=== PATIENT | male | born 1965 | race Caucasian/White ===

== ENCOUNTER 2018-06-20 16:25 | Inpatient (IN) ==
[2018-06-20] MEDS ORDERED: Sod Chloride 0.9% Inj 1,000 ML IV.SIG ONE (17:01)
[2018-06-20 17:27] LABS: Hematocrit 40.4 % (39.0-51.0); Hemoglobin 13.6 gm/dL (13.0-17.0); Mean Corpuscular HGB Conc 33.7 % (32.0-36.0); Mean Corpuscular Hemoglobin 31.4 pg (27.0-34.0); Mean Corpuscular Volume 93.1 fL (80.0-100.0); Mean Platelet Volume 10.4 fL (7.0-11.0); Platelet Count 140 th/mm3 (150-450); Red Blood Count 4.34 mil/mm3 (4.50-5.90); White Blood Count 4.9 th/mm3 (4.0-11.0)
[2018-06-20 17:38] LABS: Activated Partial Thrombo Time 31.2 sec (24.3-30.1); INR 1.2 Ratio; Prothrombin Time 12.4 sec (9.8-11.6)
[2018-06-20 17:41] LABS: Anion Gap 6 meq/L (5-15); Aspartate Aminotransferase 994 U/L (15-37); Blood Urea Nitrogen 12 mg/dL (7-18); Calcium 8.1 mg/dL (8.5-10.1); Carbon Dioxide 30.5 meq/L (21.0-32.0); Chloride 105 meq/L (98-107); Glucose,Random 108 mg/dL (74-106); Lipase 691 U/L (73-393); Potassium 3.9 meq/L (3.5-5.1); Sodium 141 meq/L (136-145)
[2018-06-20 17:49] LABS: Alanine Aminotransferase 2031 U/L (12-78); Alkaline Phosphatase 138 U/L (45-117); Creatine Kinase 208 U/L (39-308)
[2018-06-20 18:04] LABS: Creatine Kinase MB 4.5 ng/mL (0.5-3.6)
[2018-06-20 18:08] LABS: Eosinophils 8 % (0-4); Lymphocytes 31 % (9-44); Monocytes 7 % (0-8); Platelet Morphology Normal (Normal); RBC Morphology Normal (Normal)
--- NOTE | 2018-06-20 19:33 | CT ---
EXAM DATE: 06/20/2018 6:36 PM EDT AGE/SEX: 53 years / Male INDICATIONS: Diarrhea, gaviria stools, yellowing of eyes, abdominal distention, dark urine. CLINICAL DATA: This is the patient's initial encounter. Patient reports that signs and symptoms have been present for 2 weeks and indicates a pain score of 4/10. MEDICAL/SURGICAL HISTORY: . Bilateral inguinal hernias. Cholecystectomy. Inguinal hernia rep air. RADIATION DOSE: 15.39 CTDI (mGy) COMPARISON: No prior exams available for comparison. TECHNIQUE: Multiple contiguous axial images were obtained through the abdomen. Images were obtained using multiple row detector helical technique. Using automated exposure control and adjustment of the mA and/or kV according to patient size, radiation dose was kept as low as reasonably achievable to o btain optimal diagnostic quality images. DICOM format image data is available electronically for rev iew and comparison. FINDINGS: Lower Lungs: The visualized lower lungs are clear. Liver: The liver has a homogeneous density without space-occupying lesion. There is no dilation of th e biliary tree. Post cholecystectomy clips are noted. Spleen: Spleen is enlarged. Pancreas: Unremarkable without mass or calcification. Kidneys: Normal in size and shape. No evidence of mass or hydronephrosis. Adrenal Glands: Unremarkable. Aorta: The aorta and proximal iliac vessels are grossly unremarkable without aneurysmal dilation. Bowel/Mesentery: The bowel loops are grossly unremarkable. The cecum and sigmoid colon have a normal configuration. Abdominal Wall: Intact. Retroperitoneum: No evidence of adenopathy in the retrocrural, para-aortic, or deep pelvic regions. Bladder: Contours are smooth. Reproductive Organs: No abnormal masses or calcifications seen. Inguinal: The inguinal region is unremarkable without evidence of adenopathy. Bony Structures: Mild to moderate lumbar facet arthropathy CONCLUSION: 1. Splenomegaly 2. Status post cholecystectomy. 3. No evidence of biliary obstructive disease. 4. Otherwise unremarkable exam. Electronically signed by: Den Galdamez MD 06/20/2018 7:32 PM EDT
--- NOTE | 2018-06-20 19:57 | ED ---
HPI General Chief Complaint: Abdominal Pain Stated Complaint: stomach pains/gu Time Seen by Provider: 06/20/18 16:47 Source: patient Mode of arrival: ambulatory Limitations: no limitations History of Present Illness HPI narrative: 53-year-old male with a history of ADHD, anxiety, insomnia, depression, chronic low back pain presents to the emergency department for evaluation of abdominal bloating, diarrhea, and "tea colored urine" for approximately 3 weeks. Patient states that he started developing symptoms in combination with yellowing of his eyes, increased fatigue and bright and light colored stools. Says he has had 5-6 episodes of diarrhea daily for the last week and a half. Patient denies abdominal pain but says he has "pressure" throughout his abdomen. He denies nausea or vomiting. Denies fevers or chills. Denies current alcohol use but states he used to drink 5-6 beers occasionally. Patient says he smokes one half pack per day of tobacco. Denies illicit drug use. MD complaint: other Onset (ago): week(s) Location: diffuse Severity: mild Quality: other (pressure) Radiation: none Migration to: no migration Relieving factors: nothing Exacerbating factors: nothing Associated symptoms: denies other symptoms Related Data Home Medications Medication Instructions Recorded Confirmed citalopram mg PO PRN 06/20/18 citalopram [Celexa] mg PO DAILY 06/20/18 dextroamphetamine-amphetamine mg PO DAILY 06/20/18 [Adderall] trazodone mg PO DAILY 06/20/18 Allergies Allergy/AdvReac Type Severity Reaction Status Date / Time No Known Allergies Allergy Severe Uncoded 12/14/06 00:11 Review of Systems ROS: all other systems reviewed are negative [facility] Medical History Medical History Anxiety (Acute) Hernia (Acute) Insomnia (Acute) Surgical History Surgical History Hx of cholecystectomy (Acute) Social History Social History Substance History: No History of Abuse Second Hand Smoke Exposure: No Smoking Status: Former smoker Tobacco Type: Cigarettes How Often Do You Have a Drink Containing Alcohol: Never Recent Travel in [facility] within the Last 8 Weeks: No Recent Out of Country Travel within the Last 8 Weeks: No Exam Narrative Exam Narrative: GENERAL: WD, WN in NAD SKIN: Focused skin assessment warm/dry. HEAD: Atraumatic. Normocephalic. EYES: Pupils equal and round. Scleral icterus. No injection or drainage. ENT: No nasal bleeding or discharge. Mucous membranes pink and moist. NECK: Trachea midline. No JVD. CARDIOVASCULAR: Regular rate and rhythm. No murmur appreciated. RESPIRATORY: No accessory muscle use. Clear to auscultation. Breath sounds equal bilaterally. GASTROINTESTINAL: Abdomen soft, protuberant, slightly distended. No rashes or lesions. No caput medusa. MUSCULOSKELETAL: No obvious deformities. No clubbing. No cyanosis. No edema. NEUROLOGICAL: Awake and alert. No obvious cranial nerve deficits. Motor grossly within normal limits. Normal speech. PSYCHIATRIC: Appropriate mood and affect; insight and judgment normal. Course Initial Documented Vital Signs Temperature 97.4 F L 06/20/18 16:30 Pulse Rate 78 06/20/18 16:30 Respiratory Rate 20 06/20/18 16:30 Blood Pressure 160/80 H 06/20/18 16:30 Pulse Oximetry 95 06/20/18 16:30 Last Documented Vital Signs Temperature 97.1 F L 06/20/18 22:46 Pulse Rate 65 06/20/18 22:46 Respiratory Rate 18 06/20/18 22:46 Blood Pressure 164/99 H 06/20/18 22:46 Pulse Oximetry 97 06/20/18 22:46 Medical Decision Making MDM Narrative Medical decision making narrative: 53-year-old male presents to the emergency department for evaluation of 5-6 episodes of light colored diarrhea, abdominal bloating, yellowing of his eyes last 3 weeks. Denies excessive use of Tylenol, h/o illicit drug use. Denies Alcohol consumption in 10 years. Denies blood transfusion. Labs are concerning for mild thrombocytopenia, elevated coags, lipase 691, AST/ ALT 994/2031, ammonia 28, bilirubin 6.1. CT noncontributory. Of note, he states that his son was recently diagnosed with Hepatitis C. I spoke with Dr. Farley who accepted this admission. Medical Screen Exam Complete: Yes Emergency Medical Condition: Yes Differential Diagnosis Differential Diagnosis: Hepatitis, pancreatitis, gallstone pancreatitis, gastritis Lab Data Result diagrams: 06/20/18 17:08 06/20/18 17:08 Lab Results 06/20/18 06/20/18 06/20/18 Range/Units 17:05 17:08 17:08 WBC 4.9 (4.0-11.0) th/mm3 RBC 4.34 L (4.50-5.90) mil/mm3 Hgb 13.6 (13.0-17.0) gm/dL Hct 40.4 (39.0-51.0) % MCV 93.1 (80.0-100.0) fL MCH 31.4 (27.0-34.0) pg MCHC 33.7 (32.0-36.0) % RDW 18.0 H (11.6-17.2) % Plt Count 140 L (150-450) th/mm3 MPV 10.4 (7.0-11.0) fL Prelim Diff (Auto) Slide review pending WBC Differential Manual diff final Seg Neuts % (Manual) 52 (16-70) % Band Neuts % (Manual) 1 (0-6) % Lymphocytes % (Manual) 31 (9-44) % Monocytes % (Manual) 7 (0-8) % Eosinophils % (Manual) 8 H (0-4) % Basophils % (Manual) 1 (0-2) % Abs Neuts (Manual) 2.6 (1.8-7.7) th/mm3 Differential Comment . Platelet Estimate Low L (Normal) Platelet Morphology Normal (Normal) RBC Morphology Normal (Normal) PT 12.4 H (9.8-11.6) sec INR 1.2 Ratio APTT 31.2 H (24.3-30.1) sec Sodium (136-145) meq/L Potassium (3.5-5.1) meq/L Chloride (98-107) meq/L Carbon Dioxide (21.0-32.0) meq/L Anion Gap (5-15) meq/L BUN (7-18) mg/dL Creatinine (0.60-1.30) mg/dL Random Glucose (74-106) mg/dL Calcium (8.5-10.1) mg/dL Total Bilirubin (0.2-1.0) mg/dL AST (15-37) U/L ALT (12-78) U/L Alkaline Phosphatase (45-117) U/L Ammonia 28 (11-32) mcmol/L Total Creatine Kinase (39-308) U/L CK-MB (CK-2) (0.5-3.6) ng/mL Total Protein (6.4-8.2) g/dL Albumin (3.4-5.0) g/dL Lipase (73-393) U/L Urine Color (Yellw/Straw) Urine Clarity (Clear) Urine pH (5.0-8.5) Ur Specific [place] (1.002-1.035) Urine Protein (Neg-Trace) mg/dL Urine Glucose (UA) (Negative) mg/dL Urine Ketones (Negative) mg/dL Urine Occult Blood (Negative) Urine Nitrate (Negative) Urine Bilirubin (Negative) Urine Ictotest (Negative) Urine Urobilinogen (Less than 2) mg/dL Ur Leukocyte Esterase (Negative) Urine RBC (0-3) /hpf Urine WBC (0-5) /hpf Ur Squamous Epith Cells (0-5) /hpf Hyaline Casts (0-3) /lpf Micro UA Comment Ur Microscopic Review Urine Culture Comments Acetaminophen (10.0-30.0) mcg/mL 06/20/18 06/20/18 06/20/18 Range/Units 17:08 17:08 17:08 WBC (4.0-11.0) th/mm3 RBC (4.50-5.90) mil/mm3 Hgb (13.0-17.0) gm/dL Hct (39.0-51.0) % MCV (80.0-100.0) fL MCH (27.0-34.0) pg MCHC (32.0-36.0) % RDW (11.6-17.2) % Plt Count (150-450) th/mm3 MPV (7.0-11.0) fL Prelim Diff (Auto) WBC Differential Seg Neuts % (Manual) (16-70) % Band Neuts % (Manual) (0-6) % Lymphocytes % (Manual) (9-44) % Monocytes % (Manual) (0-8) % Eosinophils % (Manual) (0-4) % Basophils % (Manual) (0-2) % Abs Neuts (Manual) (1.8-7.7) th/mm3 Differential Comment Platelet Estimate (Normal) Platelet Morphology (Normal) RBC Morphology (Normal) PT (9.8-11.6) sec INR Ratio APTT (24.3-30.1) sec Sodium 141 (136-145) meq/L Potassium 3.9 (3.5-5.1) meq/L Chloride 105 (98-107) meq/L Carbon Dioxide 30.5 (21.0-32.0) meq/L Anion Gap 6 (5-15) meq/L BUN 12 (7-18) mg/dL Creatinine 0.84 (0.60-1.30) mg/dL Random Glucose 108 H (74-106) mg/dL Calcium 8.1 L (8.5-10.1) mg/dL Total Bilirubin 6.1 H (0.2-1.0) mg/dL AST 994 H (15-37) U/L ALT 2031 H (12-78) U/L Alkaline Phosphatase 138 H (45-117) U/L Ammonia (11-32) mcmol/L Total Creatine Kinase 208 Cancelled (39-308) U/L CK-MB (CK-2) 4.5 H (0.5-3.6) ng/mL Total Protein 7.0 (6.4-8.2) g/dL Albumin 3.0 L (3.4-5.0) g/dL Lipase 691 H (73-393) U/L Urine Color (Yellw/Straw) Urine Clarity (Clear) Urine pH (5.0-8.5) Ur Specific [place] (1.002-1.035) Urine Protein (Neg-Trace) mg/dL Urine Glucose (UA) (Negative) mg/dL Urine Ketones (Negative) mg/dL Urine Occult Blood (Negative) Urine Nitrate (Negative) Urine Bilirubin (Negative) Urine Ictotest (Negative) Urine Urobilinogen (Less than 2) mg/dL Ur Leukocyte Esterase (Negative) Urine RBC (0-3) /hpf Urine WBC (0-5) /hpf Ur Squamous Epith Cells (0-5) /hpf Hyaline Casts (0-3) /lpf Micro UA Comment Ur Microscopic Review Urine Culture Comments Acetaminophen Less than 2.0 L (10.0-30.0) mcg/mL 06/20/18 Range/Units 21:32 WBC (4.0-11.0) th/mm3 RBC (4.50-5.90) mil/mm3 Hgb (13.0-17.0) gm/dL Hct (39.0-51.0) % MCV (80.0-100.0) fL MCH (27.0-34.0) pg MCHC (32.0-36.0) % RDW (11.6-17.2) % Plt Count (150-450) th/mm3 MPV (7.0-11.0) fL Prelim Diff (Auto) WBC Differential Seg Neuts % (Manual) (16-70) % Band Neuts % (Manual) (0-6) % Lymphocytes % (Manual) (9-44) % Monocytes % (Manual) (0-8) % Eosinophils % (Manual) (0-4) % Basophils % (Manual) (0-2) % Abs Neuts (Manual) (1.8-7.7) th/mm3 Differential Comment Platelet Estimate (Normal) Platelet Morphology (Normal) RBC Morphology (Normal) PT (9.8-11.6) sec INR Ratio APTT (24.3-30.1) sec Sodium (136-145) meq/L Potassium (3.5-5.1) meq/L Chloride (98-107) meq/L Carbon Dioxide (21.0-32.0) meq/L Anion Gap (5-15) meq/L BUN (7-18) mg/dL Creatinine (0.60-1.30) mg/dL Random Glucose (74-106) mg/dL Calcium (8.5-10.1) mg/dL Total Bilirubin (0.2-1.0) mg/dL AST (15-37) U/L ALT (12-78) U/L Alkaline Phosphatase (45-117) U/L Ammonia (11-32) mcmol/L Total Creatine Kinase (39-308) U/L CK-MB (CK-2) (0.5-3.6) ng/mL Total Protein (6.4-8.2) g/dL Albumin (3.4-5.0) g/dL Lipase (73-393) U/L Urine Color [place] (Yellw/Straw) Urine Clarity Clear (Clear) Urine pH 5.0 (5.0-8.5) Ur Specific [place] 1.019 (1.002-1.035) Urine Protein Negative (Neg-Trace) mg/dL Urine Glucose (UA) Negative (Negative) mg/dL Urine Ketones Negative (Negative) mg/dL Urine Occult Blood Negative (Negative) Urine Nitrate Negative (Negative) Urine Bilirubin Small H (Negative) Urine Ictotest Positive H (Negative) Urine Urobilinogen 4 or greater (Less than 2) mg/dL Ur Leukocyte Esterase Negative (Negative) Urine RBC Less than 1 (0-3) /hpf Urine WBC 2 (0-5) /hpf Ur Squamous Epith Cells <1 (0-5) /hpf Hyaline Casts 1 (0-3) /lpf Micro UA Comment Culture not ind Ur Microscopic Review Not Reportable Urine Culture Comments Culture not ind Acetaminophen (10.0-30.0) mcg/mL Imaging Data Radiologist's impression: Abdomen/Pelvis CT 06/20/18 17:01 CONCLUSION: 1. Splenomegaly 2. Status post cholecystectomy. 3. No evidence of biliary obstructive disease. 4. Otherwise unremarkable exam. Discharge Plan Discharge Disposition Patient Disposition: 30 Still Patient Discharge Condition Condition: Stable Discharge Details Diagnosis: Elevated liver enzymes, Elevated lipase Physicians Team ED Provider: Fina Sutton ED Midlevel Provider: Nazanin James Primary Care Provider: Primary Care Gali,Sena Attending Provider: Alejandro Jones Other Providers: Ayo Ham Status ED Status: Left Department Discharge Information Discharge Date/Time: 06/20/18 22:00
[2018-06-20] MEDS ORDERED: Bisacodyl 10 MG Supp RECTAL PRN (20:41)
--- NOTE | 2018-06-20 21:19 | P.HPFP ---
History of Present Illness Primary Care Physician: No Primary Care Physician History of Present Illness: This is a pleasant 53 yo male with past medical history of depression , insomnia and ADD, who presents to the ED today with complaints of yellow eyes and dark colored urine. Patient endorses 2 weeks history of abdominal bloating, flatulence and gaviria colored stools. In the past several days his work associated noticed his eyes appeared yellow. he also noticed his urine was dark. He presented to the ER for evaluation based on his coworkers concern. he denies any abdominal pain, weight loss, nausea, vomiting. He has prior history of cholecystectomy. Remote history of cocaine use, but no history of IV drug abuse. He denies any alcohol. Denies taking any tylenol. Has been taking his medications as prescribed. Denies taking any supplements or other OTC medications. He sees psychiatry. He is not sure who is PCP is, has not seen a PCP in the past year. He takes citalopram, trazodone and adderall. States he takes the trazodone only about 5 times per month, as needed. Denies any family history of cirrhosis. He endorses fatigue and daytime somnolence. LFTs in the ER showing marked elevation up to ALT predominance of 2,[address] scan was negative other than splenomegaly. Lipase elevated at greater than 600. - Diagnosis (1) Acute hepatitis (2) Elevated lipase (3) Thrombocytopenia Review of Systems All other systems reviewed negative except as stated in HPI (or as below) Constitutional: Reports lack of energy, Reports malaise PMFSH - History History Provided By: Patient - Medical History Medical History: Medical History (Last Updated 06/21/18 @ 00:32 by Hiwot Perera MD) ADD (attention deficit disorder) Anxiety Hernia Insomnia - Surgical History Surgical History: Surgical History (Last Updated 06/21/18 @ 00:32 by Hiwot Perera MD) History of inguinal hernia repair, bilateral Hx of cholecystectomy - Tobacco History Tobacco Use In Past 30 Days: Yes Smoking Status: Current every day smoker Tobacco Type: Cigarettes - Alcohol History How Often Do You Have a Drink Containing Alcohol: Never - Substance Use History Substance History: No History of Abuse - Travel History Recent Travel in the [place] Within the Last 8 Weeks: No Recent Travel Out of the Country Within the Last 8 Weeks: No - Immunization History Tetanus Immunization: Never Vaccinated Hx Influenza Vaccine This Season: No Medications and Allergies Active Medications: Active Medications Al Hydroxide/Mg Hydroxide (Milk Of Magnesia Liq) 30 ml PO Q12H PRN PRN Reason: Mild Constipation Bisacodyl (Dulcolax Supp) 10 mg RECTAL DAILY PRN PRN Reason: SEVERE CONSITIPATION Lactulose (Lactulose Liq) 30 ml PO DAILY PRN PRN Reason: SEVERE CONSITIPATION Ondansetron HCl (Zofran Inj) 4 mg IV.PUSH Q6H PRN PRN Reason: NAUSEA OR VOMITING Sennosides (Senokot) 17.2 mg PO Q12H PRN PRN Reason: Moderate Constipation Sodium Chloride (Ns Flush) 2 ml IV.FLUSH PRN PRN PRN Reason: FLUSH AFTER USING IV ACCESS Temazepam (Restoril) 7.5 mg PO HS PRN PRN Reason: insomnia Allergies Allergy/AdvReac Type Severity Reaction Status Date / Time No Known Allergies Allergy Severe Uncoded 12/14/06 00:11 Home Medications Medication Instructions Recorded Confirmed Type citalopram mg PO PRN 06/20/18 History citalopram [Celexa] mg PO DAILY 06/20/18 History dextroamphetamine-amphetamine mg PO DAILY 06/20/18 History [Adderall] trazodone mg PO DAILY 06/20/18 History Exam Vital signs: Vital Signs 06/20/18 16:30 06/20/18 17:14 06/20/18 18:00 Temperature 97.4 F L Pulse Rate 78 73 70 Respiratory Rate 20 18 18 Blood Pressure 160/80 H 172/94 H 181/93 H Pulse Oximetry 95 97 96 Intake & Output 06/20/18 06/20/18 06/21/18 06:59 18:59 06:59 Intake Total 1000 / 1000 Balance 1000 / 1000 Weight 127.006 kg Intake: IV 1000 / 1000 NS Inj 1,000 ML @ Wide Open IV. 1000 / 1000 SIG BOLUS ONE Rx#:[id number] Narrative: General: pleasant overweight male in NAD. HEENT: mild scleral icterus, no conjunctival injection. EOMI. moist mucous membranes. Neck: supple without JVD. CV: RRR, no murmurs. equal dorsalis pedis pulses. Lungs: normal respiratory effort, CTAB. Abdomen: obese, BS present, no discernible organomegaly, no tenderness to palpation. soft and nondistended. Skin: dry and well perfused, no rashes. Neurological: alert and oriented. face symmetric, normal speech, moves all extremities well. Psych: normal mood, affect and insight. Results - Labs Result diagrams: 06/20/18 17:08 06/20/18 17:08 Abnormal lab results 06/20/18 06/20/18 06/20/18 Range/Units 17:08 17:08 17:08 RBC 4.34 L (4.50-5.90) mil/mm3 RDW 18.0 H (11.6-17.2) % Plt Count 140 L (150-450) th/mm3 Eosinophils % (Manual) 8 H (0-4) % Platelet Estimate Low L (Normal) PT 12.4 H (9.8-11.6) sec APTT 31.2 H (24.3-30.1) sec Random Glucose 108 H (74-106) mg/dL Calcium 8.1 L (8.5-10.1) mg/dL Total Bilirubin 6.1 H (0.2-1.0) mg/dL AST 994 H (15-37) U/L ALT 2031 H (12-78) U/L Alkaline Phosphatase 138 H (45-117) U/L CK-MB (CK-2) 4.5 H (0.5-3.6) ng/mL Albumin 3.0 L (3.4-5.0) g/dL Lipase 691 H (73-393) U/L Short CBC 06/20/18 Range/Units 17:08 WBC 4.9 (4.0-11.0) th/mm3 Hgb 13.6 (13.0-17.0) gm/dL Hct 40.4 (39.0-51.0) % Plt Count 140 L (150-450) th/mm3 BMP 06/20/18 17:08 Sodium 141 Potassium 3.9 Chloride 105 Carbon Dioxide 30.5 BUN 12 Creatinine 0.84 Calcium 8.1 L Cardiac Enzymes 06/20/18 06/20/18 Range/Units 17:08 17:08 Total Creatine Kinase 208 Cancelled (39-308) U/L CK-MB (CK-2) 4.5 H (0.5-3.6) ng/mL Liver Function 06/20/18 Range/Units 17:08 Total Bilirubin 6.1 H (0.2-1.0) mg/dL AST 994 H (15-37) U/L ALT 2031 H (12-78) U/L Alkaline Phosphatase 138 H (45-117) U/L Albumin 3.0 L (3.4-5.0) g/dL - Imaging Impressions Abdomen/Pelvis CT 06/20/18 17:01 CONCLUSION: 1. Splenomegaly 2. Status post cholecystectomy. 3. No evidence of biliary obstructive disease. 4. Otherwise unremarkable exam. Caprini VTE Risk Assessment Caprini VTE Risk Assessment: No/Low Risk (score <= 1) Caprini Risk Assessment Model: Point Value = 1 Point Value = 2 Point Value = 3 Point Value = 5 Age 41-60 Minor surgery BMI > 25 kg/m2 Swollen legs Varicose veins or History of unexplained or recurrent spontaneous Oral contraceptives or hormone replacement Sepsis (< 1 month) Serious lung disease, including pneumonia (< 1 month) Abnormal pulmonary function Acute myocardial infarction Congestive heart failure (< 1 month) History of inflammatory bowel disease Medical patient at bed rest Age 61-74 Arthroscopic surgery Major open surgery (> 45 min) Laparoscopic surgery (> 45 min) Malignancy Confined to bed (> 72 hours) Immobilizing plaster cast Central venous access Age >= 75 History of VTE Family history of VTE Factor V Leiden Prothrombin [id number] Lupus anticoagulant Anticardiolipin antibodies Elevated serum homocysteine Heparin-induced thrombocytopenia Other congenital or acquired thrombophilia Stroke (< 1 month) Elective arthroplasty Hip, pelvis, or leg fracture Acute spinal cord injury (< 1 month) Prophylaxis Regimen: Total Risk Factor Score Risk Level Prophylaxis Regimen 0-1 Low Early ambulation 2 Moderate Order ONE of the following: *Sequential Compression Device (SCD) *Heparin 5000 units SQ BID 3-4 Higher Order ONE of the following medications: *Heparin 5000 units SQ TID *Enoxaparin/Lovenox 40 mg SQ daily (WT < 150 kg, CrCl > 30 mL/min) *Enoxaparin/Lovenox 30 mg SQ daily (WT < 150 kg, CrCl > 10-29 mL/min) *Enoxaparin/Lovenox 30 mg SQ BID (WT < 150 kg, CrCl > 30 mL/min) AND/OR *Sequential Compression Device (SCD) 5 or more Highest Order ONE of the following medications: *Heparin 5000 units SQ TID (Preferred with Epidurals) *Enoxaparin/Lovenox 40 mg SQ daily (WT < 150 kg, CrCl > 30 mL/min) *Enoxaparin/Lovenox 30 mg SQ daily (WT < 150 kg, CrCl > 10-29 mL/min) *Enoxaparin/Lovenox 30 mg SQ BID (WT < 150 kg, CrCl > 30 mL/min) AND *Sequential Compression Device (SCD) Assessment and Plan - Assessment (1) Acute hepatitis Code(s): B17.9 - Acute viral hepatitis, unspecified Status: Acute (2) Elevated lipase Code(s): R74.8 - Abnormal levels of other serum enzymes Status: Acute (3) Thrombocytopenia Code(s): D69.6 - Thrombocytopenia, unspecified Status: Acute - Assessment and Plan Unclear etiology as to the acute hepatitis. He denies any history of alcohol or tylenol consumption. Abdominal CT scan was negative. Will check hepatitis panel and tylenol level. Consult GI for opinion. Monitor liver function tests. Monitor platelets. Hold trazodone. SCDs for DVT prophylaxis.
[2018-06-20 22:31] LABS: Bilirubin,Urine Small (Negative); Clarity,Urine Clear (Clear); Color,Urine Amber (Yellw/Straw); Glucose,Urine (UA) Negative (Negative); Hyaline Casts,Urine 1 /lpf (0-3); Leukocyte Esterase,Urine Negative (Negative); Nitrite,Urine Negative (Negative); Specific Gravity,Urine 1.019 (1.002-1.035); Squamous Epithelial Cell,Urine <1 /hpf (0-5); Urobilinogen,Urine 4 or Greater mg/dL (Less than 2)
[2018-06-20 22:36] LABS: Ictotest,Urine Positive (Negative)
[2018-06-21 06:42] LABS: Baso % (Auto) 0.5 % (0.0-2.0); Eos # (Auto) 0.2 th/mm3 (0.0-0.4); Eos % (Auto) 4.3 % (0.0-4.0); Hematocrit 39.4 % (39.0-51.0); Hemoglobin 13.2 gm/dL (13.0-17.0); Lymph # (Auto) 1.9 th/mm3 (1.0-4.8); Mean Corpuscular HGB Conc 33.5 % (32.0-36.0); Mean Corpuscular Hemoglobin 31.4 pg (27.0-34.0); Mean Corpuscular Volume 93.6 fL (80.0-100.0); Mean Platelet Volume 10.7 fL (7.0-11.0); Mono # (Auto) 0.5 th/mm3 (0.0-0.9); Mono % (Auto) 10.8 % (0.0-8.0); Neut # (Auto) 2.3 th/mm3 (1.8-7.7); Neut % (Auto) 46.4 % (16.0-70.0); Platelet Count 123 th/mm3 (150-450); Red Blood Count 4.21 mil/mm3 (4.50-5.90); Red Cell Distribution Width 17.4 % (11.6-17.2)
[2018-06-21 06:59] LABS: INR 1.2 Ratio
[2018-06-21 07:16] LABS: Alanine Aminotransferase 1881 U/L (12-78); Albumin 2.8 g/dL (3.4-5.0); Alkaline Phosphatase 128 U/L (45-117); Anion Gap 8 meq/L (5-15); Blood Urea Nitrogen 13 mg/dL (7-18); Calcium 8.1 mg/dL (8.5-10.1); Carbon Dioxide 28.4 meq/L (21.0-32.0); Chloride 105 meq/L (98-107); Glomerular Filtration Rate Greater Than 89 mL/min (>89); Glucose,Random 51 mg/dL (74-106); Lipase 280 U/L (73-393); Sodium 141 meq/L (136-145); Total Protein 6.7 g/dL (6.4-8.2)
[2018-06-21 07:17] LABS: Aspartate Aminotransferase 849 U/L (15-37); Potassium 4.1 meq/L (3.5-5.1)
[2018-06-21 07:51] LABS: Hepatitis A IgM Antibody Nonreactive (Nonreactive); Hepatitits B Surface Antigen Reactive (Nonreactive)
--- NOTE | 2018-06-21 09:19 | P.CONGI ---
History of Present Illness Chief complaint: elevated liver enzymes, elevated lipase History of Present Illness: This is a 53 year old male with past medical history of depression, insomnia and ADD, who presents to the ED today with complaints of yellow eyes and dark colored urine for the past 2 weeks. labs revealed acute hepatitis B. Endorses 2 weeks history of abdominal bloating, and gaviria colored stools. On admission, marked elevation in LFTs , AST 994, ALT 2031, ALP 138, bili 6.1. lipase 691. Abdominal CT scan was negative other than splenomegaly. Denies previous hx of liver dz. Remote history of cocaine use, but no history of IV drug abuse.He denies any alcohol. Denies taking any tylenol. He denies any abdominal pain, weight loss, nausea, vomiting. He has prior history of cholecystectomy. He denies any recent risky behavior. His fiance in the room, states they have been together for over a yr. <Stefany Brown - Last Filed: 06/21/18 09:04> Consult date: 06/21/18 <Ayo Ham - Last Filed: 06/21/18 14:46> Review of Systems All other systems reviewed negative except as stated in HPI <Stefany Brown - Last Filed: 06/21/18 09:04> PMFSH - History History Provided By: Patient - Medical History Medical History: Medical History (Last Updated 06/21/18 @ 00:32 by Hiwto Perera MD) ADD (attention deficit disorder) Anxiety Hernia Insomnia - Surgical History Surgical History: Surgical History (Last Updated 06/21/18 @ 00:32 by Hiwot Perera MD) History of inguinal hernia repair, bilateral Hx of cholecystectomy - Tobacco History Second Hand Smoke Exposure: No Tobacco Use In Past 30 Days: Yes Smoking Status: Current every day smoker Tobacco Type: Cigarettes - Alcohol History How Often Do You Have a Drink Containing Alcohol: Never - Substance Use History Substance History: No History of Abuse - Travel History Recent Travel in the [place] Within the Last 8 Weeks: No Recent Travel Out of the Country Within the Last 8 Weeks: No - Immunization History Tetanus Immunization: Never Vaccinated Hx Influenza Vaccine This Season: No <Stefany Brown - Last Filed: 06/21/18 09:04> - Medical History Medical History: Medical History (Last Updated 06/21/18 @ 00:32 by Hiwot Perera MD) ADD (attention deficit disorder) Anxiety Hernia Insomnia - Surgical History Surgical History: Surgical History (Last Updated 06/21/18 @ 00:32 by Hiwot Perera MD) History of inguinal hernia repair, bilateral Hx of cholecystectomy <Ayo Ham - Last Filed: 06/21/18 14:46> Medications and Allergies Active Medications: Active Medications Al Hydroxide/Mg Hydroxide (Milk Of Magnesia Liq) 30 ml PO Q12H PRN PRN Reason: Mild Constipation Bisacodyl (Dulcolax Supp) 10 mg RECTAL DAILY PRN PRN Reason: SEVERE CONSITIPATION Lactulose (Lactulose Liq) 30 ml PO DAILY PRN PRN Reason: SEVERE CONSITIPATION Ondansetron HCl (Zofran Inj) 4 mg IV.PUSH Q6H PRN PRN Reason: NAUSEA OR VOMITING Sennosides (Senokot) 17.2 mg PO Q12H PRN PRN Reason: Moderate Constipation Sodium Chloride (Ns Flush) 2 ml IV.FLUSH PRN PRN PRN Reason: FLUSH AFTER USING IV ACCESS Temazepam (Restoril) 7.5 mg PO HS PRN PRN Reason: insomnia <Stefany Brown - Last Filed: 06/21/18 09:04> Active Medications: Active Medications Al Hydroxide/Mg Hydroxide (Milk Of Magnesia Liq) 30 ml PO Q12H PRN PRN Reason: Mild Constipation Alprazolam (Xanax) 1 mg PO Q6HR PRN PRN Reason: anxiety (hold for sedation) Last Admin: 06/21/18 11:04 Dose: 1 mg Bisacodyl (Dulcolax Supp) 10 mg RECTAL DAILY PRN PRN Reason: SEVERE CONSITIPATION Citalopram Hydrobromide (Celexa) 40 mg PO DAILY AHMET Last Admin: 06/21/18 11:04 Dose: 40 mg Lactulose (Lactulose Liq) 30 ml PO DAILY PRN PRN Reason: SEVERE CONSITIPATION Ondansetron HCl (Zofran Inj) 4 mg IV.PUSH Q6H PRN PRN Reason: NAUSEA OR VOMITING Sennosides (Senokot) 17.2 mg PO Q12H PRN PRN Reason: Moderate Constipation Sodium Chloride (Ns Flush) 2 ml IV.FLUSH PRN PRN PRN Reason: FLUSH AFTER USING IV ACCESS Temazepam (Restoril) 7.5 mg PO HS PRN PRN Reason: insomnia <JitendraAyo weber - Last Filed: 06/21/18 14:46> Allergies Allergy/AdvReac Type Severity Reaction Status Date / Time No Known Allergies Allergy Severe Uncoded 12/14/06 00:11 Home Medications Medication Instructions Recorded Confirmed Type citalopram [Celexa] 40 mg PO DAILY 06/20/18 06/21/18 History dextroamphetamine-amphetamine 30 mg PO BID 06/20/18 06/21/18 History [Adderall] trazodone mg PO DAILY 06/20/18 History alprazolam [Xanax] 2 mg PO TID 06/21/18 06/21/18 History Exam Vital signs: Vital Signs 06/20/18 16:30 06/20/18 17:14 06/20/18 18:00 Temperature 97.4 F L Pulse Rate 78 73 70 Respiratory Rate 20 18 18 Blood Pressure 160/80 H 172/94 H 181/93 H Pulse Oximetry 95 97 96 06/20/18 20:41 06/20/18 22:46 06/21/18 00:00 Temperature 97.1 F L Pulse Rate 84 65 67 Respiratory Rate 17 18 Blood Pressure 170/107 H 164/99 H Pulse Oximetry 98 97 06/21/18 04:00 Temperature 97.1 F L Pulse Rate 72 Respiratory Rate 18 Blood Pressure 138/76 Pulse Oximetry 94 L Intake & Output 06/20/18 06/21/18 06/21/18 18:59 06:59 18:59 Intake Total 1000 / 1000 Balance 1000 / 1000 Weight 127.006 kg 137.1 kg Intake: IV 1000 / 1000 NS Inj 1,000 ML @ Wide Open IV. 1000 / 1000 SIG BOLUS ONE Rx#:[id number] Other: # Voids 1 - Constitutional no acute distress - Routine HEENT Exam Head: Present: normocephalic ENT: Present: mucous membranes moist - Routine Respiratory Exam Present: CTA bilaterally - Routine Cardiovascular Exam Present: RRR - Routine Abdominal Exam Present: soft, normoactive bowel sounds, organomegaly. Absent: tenderness, distended - Routine Skin Exam Present: intact, dry, jaundice - Routine Neurological Exam Present: alert, oriented X3 <Stefany Brown - Last Filed: 06/21/18 09:04> Vital signs: Vital Signs 06/20/18 16:30 06/20/18 17:14 06/20/18 18:00 Temperature 97.4 F L Pulse Rate 78 73 70 Respiratory Rate 20 18 18 Blood Pressure 160/80 H 172/94 H 181/93 H Pulse Oximetry 95 97 96 06/20/18 20:41 06/20/18 22:46 06/21/18 00:00 Temperature 97.1 F L Pulse Rate 84 65 67 Respiratory Rate 17 18 Blood Pressure 170/107 H 164/99 H Pulse Oximetry 98 97 06/21/18 04:00 06/21/18 08:00 06/21/18 12:00 Temperature 97.1 F L 97.8 F 97.9 F Pulse Rate 72 69 70 Respiratory Rate 18 19 19 Blood Pressure 138/76 149/86 H 170/97 H Pulse Oximetry 94 L 96 97 Intake & Output 06/20/18 06/21/18 06/21/18 18:59 06:59 18:59 Intake Total 1000 / 1000 Balance 1000 / 1000 Weight 127.006 kg 137.1 kg Intake: IV 1000 / 1000 NS Inj 1,000 ML @ Wide Open IV. 1000 / 1000 SIG BOLUS ONE Rx#:[id number] Other: # Voids 1 <JitendraRollins - Last Filed: 06/21/18 14:46> Results - Labs CBC & Chem 7: 06/21/18 03:42 06/21/18 03:42 Labs: Laboratory Results - last 24 hr 06/20/18 06/20/18 06/20/18 17:05 17:08 17:08 WBC 4.9 RBC 4.34 L Hgb 13.6 Hct 40.4 MCV 93.1 MCH 31.4 MCHC 33.7 RDW 18.0 H Plt Count 140 L MPV 10.4 Prelim Diff (Auto) Slide review pending Neut % (Auto) Lymph % (Auto) Forrest % (Auto) Eos % (Auto) Baso % (Auto) Neut # (Auto) Lymph # (Auto) Forrest # (Auto) Eos # (Auto) Baso # (Auto) WBC Differential Manual diff final Seg Neuts % (Manual) 52 Band Neuts % (Manual) 1 Lymphocytes % (Manual) 31 Monocytes % (Manual) 7 Eosinophils % (Manual) 8 H Basophils % (Manual) 1 Abs Neuts (Manual) 2.6 Differential Comment . Platelet Estimate Low L Platelet Morphology Normal RBC Morphology Normal PT 12.4 H INR 1.2 APTT 31.2 H Sodium Potassium Chloride Carbon Dioxide Anion Gap BUN Creatinine Estimated GFR Random Glucose Calcium Total Bilirubin Direct Bilirubin Indirect Bilirubin AST ALT Alkaline Phosphatase Ammonia 28 Total Creatine Kinase CK-MB (CK-2) Total Protein Albumin Lipase Urine Color Urine Clarity Urine pH Ur Specific [place] Urine Protein Urine Glucose (UA) Urine Ketones Urine Occult Blood Urine Nitrate Urine Bilirubin Urine Ictotest Urine Urobilinogen Ur Leukocyte Esterase Urine RBC Urine WBC Ur Squamous Epith Cells Hyaline Casts Micro UA Comment Ur Microscopic Review Urine Culture Comments Acetaminophen Hepatitis A IgM Ab Hep Bs Antigen Hep B Core IgM Ab Hep C IgG Ab 06/20/18 06/20/18 06/20/18 17:08 17:08 17:08 WBC RBC Hgb Hct MCV MCH MCHC RDW Plt Count MPV Prelim Diff (Auto) Neut % (Auto) Lymph % (Auto) Forrest % (Auto) Eos % (Auto) Baso % (Auto) Neut # (Auto) Lymph # (Auto) Forrest # (Auto) Eos # (Auto) Baso # (Auto) WBC Differential Seg Neuts % (Manual) Band Neuts % (Manual) Lymphocytes % (Manual) Monocytes % (Manual) Eosinophils % (Manual) Basophils % (Manual) Abs Neuts (Manual) Differential Comment Platelet Estimate Platelet Morphology RBC Morphology PT INR APTT Sodium 141 Potassium 3.9 Chloride 105 Carbon Dioxide 30.5 Anion Gap 6 BUN 12 Creatinine 0.84 Estimated GFR Random Glucose 108 H Calcium 8.1 L Total Bilirubin 6.1 H Direct Bilirubin Indirect Bilirubin AST 994 H ALT 2031 H Alkaline Phosphatase 138 H Ammonia Total Creatine Kinase 208 Cancelled CK-MB (CK-2) 4.5 H Total Protein 7.0 Albumin 3.0 L Lipase 691 H Urine Color Urine Clarity Urine pH Ur Specific [place] Urine Protein Urine Glucose (UA) Urine Ketones Urine Occult Blood Urine Nitrate Urine Bilirubin Urine Ictotest Urine Urobilinogen Ur Leukocyte Esterase Urine RBC Urine WBC Ur Squamous Epith Cells Hyaline Casts Micro UA Comment Ur Microscopic Review Urine Culture Comments Acetaminophen Less than 2.0 L Hepatitis A IgM Ab Hep Bs Antigen Hep B Core IgM Ab Hep C IgG Ab 06/20/18 06/21/18 06/21/18 21:32 03:42 03:42 WBC 5.0 RBC 4.21 L Hgb 13.2 Hct 39.4 MCV 93.6 MCH 31.4 MCHC 33.5 RDW 17.4 H Plt Count 123 L MPV 10.7 Prelim Diff (Auto) Neut % (Auto) 46.4 Lymph % (Auto) 38.0 Forrest % (Auto) 10.8 H Eos % (Auto) 4.3 H Baso % (Auto) 0.5 Neut # (Auto) 2.3 Lymph # (Auto) 1.9 Forrest # (Auto) 0.5 Eos # (Auto) 0.2 Baso # (Auto) 0.0 WBC Differential . Seg Neuts % (Manual) Band Neuts % (Manual) Lymphocytes % (Manual) Monocytes % (Manual) Eosinophils % (Manual) Basophils % (Manual) Abs Neuts (Manual) Differential Comment Auto diff final Platelet Estimate Platelet Morphology RBC Morphology PT INR APTT Sodium Potassium Chloride Carbon Dioxide Anion Gap BUN Creatinine Estimated GFR Random Glucose Calcium Total Bilirubin Direct Bilirubin Indirect Bilirubin AST ALT Alkaline Phosphatase Ammonia Total Creatine Kinase CK-MB (CK-2) Total Protein Albumin Lipase Urine Color Mady Urine Clarity Clear Urine pH 5.0 Ur Specific [place] 1.019 Urine Protein Negative Urine Glucose (UA) Negative Urine Ketones Negative Urine Occult Blood Negative Urine Nitrate Negative Urine Bilirubin Small H Urine Ictotest Positive H Urine Urobilinogen 4 or greater Ur Leukocyte Esterase Negative Urine RBC Less than 1 Urine WBC 2 Ur Squamous Epith Cells <1 Hyaline Casts 1 Micro UA Comment Culture not ind Ur Microscopic Review Not Reportable Urine Culture Comments Culture not ind Acetaminophen Hepatitis A IgM Ab Nonreactive Hep Bs Antigen Reactive H Hep B Core IgM Ab Reactive H Hep C IgG Ab Nonreactive 06/21/18 06/21/18 03:42 03:42 WBC RBC Hgb Hct MCV MCH MCHC RDW Plt Count MPV Prelim Diff (Auto) Neut % (Auto) Lymph % (Auto) Forrest % (Auto) Eos % (Auto) Baso % (Auto) Neut # (Auto) Lymph # (Auto) Forrest # (Auto) Eos # (Auto) Baso # (Auto) WBC Differential Seg Neuts % (Manual) Band Neuts % (Manual) Lymphocytes % (Manual) Monocytes % (Manual) Eosinophils % (Manual) Basophils % (Manual) Abs Neuts (Manual) Differential Comment Platelet Estimate Platelet Morphology RBC Morphology PT 12.0 H INR 1.2 APTT Sodium 141 Potassium 4.1 Chloride 105 Carbon Dioxide 28.4 Anion Gap 8 BUN 13 Creatinine 0.71 Estimated GFR Greater than 89 Random Glucose 51 L Calcium 8.1 L Total Bilirubin 6.6 H Direct Bilirubin 3.9 H Indirect Bilirubin 2.7 H AST 849 H ALT 1881 H Alkaline Phosphatase 128 H Ammonia Total Creatine Kinase CK-MB (CK-2) Total Protein 6.7 Albumin 2.8 L Lipase 280 Urine Color Urine Clarity Urine pH Ur Specific [place] Urine Protein Urine Glucose (UA) Urine Ketones Urine Occult Blood Urine Nitrate Urine Bilirubin Urine Ictotest Urine Urobilinogen Ur Leukocyte Esterase Urine RBC Urine WBC Ur Squamous Epith Cells Hyaline Casts Micro UA Comment Ur Microscopic Review Urine Culture Comments Acetaminophen Hepatitis A IgM Ab Hep Bs Antigen Hep B Core IgM Ab Hep C IgG Ab - Imaging Impressions Abdomen/Pelvis CT 06/20/18 17:01 CONCLUSION: 1. Splenomegaly 2. Status post cholecystectomy. 3. No evidence of biliary obstructive disease. 4. Otherwise unremarkable exam. <Stefany Brown - Last Filed: 06/21/18 09:04> - Labs CBC & Chem 7: 06/21/18 03:42 06/21/18 03:42 Labs: Laboratory Results - last 24 hr 06/20/18 06/20/18 06/20/18 17:05 17:08 17:08 WBC 4.9 RBC 4.34 L Hgb 13.6 Hct 40.4 MCV 93.1 MCH 31.4 MCHC 33.7 RDW 18.0 H Plt Count 140 L MPV 10.4 Prelim Diff (Auto) Slide review pending Neut % (Auto) Lymph % (Auto) Forrest % (Auto) Eos % (Auto) Baso % (Auto) Neut # (Auto) Lymph # (Auto) Forrest # (Auto) Eos # (Auto) Baso # (Auto) WBC Differential Manual diff final Seg Neuts % (Manual) 52 Band Neuts % (Manual) 1 Lymphocytes % (Manual) 31 Monocytes % (Manual) 7 Eosinophils % (Manual) 8 H Basophils % (Manual) 1 Abs Neuts (Manual) 2.6 Differential Comment . Platelet Estimate Low L Platelet Morphology Normal RBC Morphology Normal PT 12.4 H INR 1.2 APTT 31.2 H Sodium Potassium Chloride Carbon Dioxide Anion Gap BUN Creatinine Estimated GFR Random Glucose Calcium Iron TIBC % Saturation Ferritin Total Bilirubin Direct Bilirubin Indirect Bilirubin AST ALT Alkaline Phosphatase Ammonia 28 Total Creatine Kinase CK-MB (CK-2) Total Protein Albumin Lipase Tumor Marker AFP Urine Color Urine Clarity Urine pH Ur Specific [place] Urine Protein Urine Glucose (UA) Urine Ketones Urine Occult Blood Urine Nitrate Urine Bilirubin Urine Ictotest Urine Urobilinogen Ur Leukocyte Esterase Urine RBC Urine WBC Ur Squamous Epith Cells Hyaline Casts Micro UA Comment Ur Microscopic Review Urine Culture Comments Acetaminophen Hepatitis A IgM Ab Hep Bs Antigen Hep B Core IgM Ab Hep C IgG Ab 06/20/18 06/20/18 06/20/18 17:08 17:08 17:08 WBC RBC Hgb Hct MCV MCH MCHC RDW Plt Count MPV Prelim Diff (Auto) Neut % (Auto) Lymph % (Auto) [place] % (Auto) Eos % (Auto) Baso % (Auto) Neut # (Auto) Lymph # (Auto) [place] # (Auto) Eos # (Auto) Baso # (Auto) WBC Differential Seg Neuts % (Manual) Band Neuts % (Manual) Lymphocytes % (Manual) Monocytes % (Manual) Eosinophils % (Manual) Basophils % (Manual) Abs Neuts (Manual) Differential Comment Platelet Estimate Platelet Morphology RBC Morphology PT INR APTT Sodium 141 Potassium 3.9 Chloride 105 Carbon Dioxide 30.5 Anion Gap 6 BUN 12 Creatinine 0.84 Estimated GFR Random Glucose 108 H Calcium 8.1 L Iron TIBC % Saturation Ferritin Total Bilirubin 6.1 H Direct Bilirubin Indirect Bilirubin AST 994 H ALT 2031 H Alkaline Phosphatase 138 H Ammonia Total Creatine Kinase 208 Cancelled CK-MB (CK-2) 4.5 H Total Protein 7.0 Albumin 3.0 L Lipase 691 H Tumor Marker AFP Urine Color Urine Clarity Urine pH Ur Specific [place] Urine Protein Urine Glucose (UA) Urine Ketones Urine Occult Blood Urine Nitrate Urine Bilirubin Urine Ictotest Urine Urobilinogen Ur Leukocyte Esterase Urine RBC Urine WBC Ur Squamous Epith Cells Hyaline Casts Micro UA Comment Ur Microscopic Review Urine Culture Comments Acetaminophen Less than 2.0 L Hepatitis A IgM Ab Hep Bs Antigen Hep B Core IgM Ab Hep C IgG Ab 06/20/18 06/21/18 06/21/18 21:32 03:42 03:42 WBC 5.0 RBC 4.21 L Hgb 13.2 Hct 39.4 MCV 93.6 MCH 31.4 MCHC 33.5 RDW 17.4 H Plt Count 123 L MPV 10.7 Prelim Diff (Auto) Neut % (Auto) 46.4 Lymph % (Auto) 38.0 Forrest % (Auto) 10.8 H Eos % (Auto) 4.3 H Baso % (Auto) 0.5 Neut # (Auto) 2.3 Lymph # (Auto) 1.9 [place] # (Auto) 0.5 Eos # (Auto) 0.2 Baso # (Auto) 0.0 WBC Differential . Seg Neuts % (Manual) Band Neuts % (Manual) Lymphocytes % (Manual) Monocytes % (Manual) Eosinophils % (Manual) Basophils % (Manual) Abs Neuts (Manual) Differential Comment Auto diff final Platelet Estimate Platelet Morphology RBC Morphology PT INR APTT Sodium Potassium Chloride Carbon Dioxide Anion Gap BUN Creatinine Estimated GFR Random Glucose Calcium Iron TIBC % Saturation Ferritin Total Bilirubin Direct Bilirubin Indirect Bilirubin AST ALT Alkaline Phosphatase Ammonia Total Creatine Kinase CK-MB (CK-2) Total Protein Albumin Lipase Tumor Marker AFP Urine Color [place]ady Urine Clarity Clear Urine pH 5.0 Ur Specific [place] 1.019 Urine Protein Negative Urine Glucose (UA) Negative Urine Ketones Negative Urine Occult Blood Negative Urine Nitrate Negative Urine Bilirubin Small H Urine Ictotest Positive H Urine Urobilinogen 4 or greater Ur Leukocyte Esterase Negative Urine RBC Less than 1 Urine WBC 2 Ur Squamous Epith Cells <1 Hyaline Casts 1 Micro UA Comment Culture not ind Ur Microscopic Review Not Reportable Urine Culture Comments Culture not ind Acetaminophen Hepatitis A IgM Ab Nonreactive Hep Bs Antigen Reactive H Hep B Core IgM Ab Reactive H Hep C IgG Ab Nonreactive 06/21/18 06/21/18 06/21/18 03:42 03:42 10:31 WBC RBC Hgb Hct MCV MCH MCHC RDW Plt Count MPV Prelim Diff (Auto) Neut % (Auto) Lymph % (Auto) [place] % (Auto) Eos % (Auto) Baso % (Auto) Neut # (Auto) Lymph # (Auto) [place] # (Auto) Eos # (Auto) Baso # (Auto) WBC Differential Seg Neuts % (Manual) Band Neuts % (Manual) Lymphocytes % (Manual) Monocytes % (Manual) Eosinophils % (Manual) Basophils % (Manual) Abs Neuts (Manual) Differential Comment Platelet Estimate Platelet Morphology RBC Morphology PT 12.0 H INR 1.2 APTT Sodium 141 Potassium 4.1 Chloride 105 Carbon Dioxide 28.4 Anion Gap 8 BUN 13 Creatinine 0.71 Estimated GFR Greater than 89 Random Glucose 51 L Calcium 8.1 L Iron 202 H TIBC 316 % Saturation 63.8 H Ferritin 1417 H Total Bilirubin 6.6 H Direct Bilirubin 3.9 H Indirect Bilirubin 2.7 H AST 849 H ALT 1881 H Alkaline Phosphatase 128 H Ammonia Total Creatine Kinase CK-MB (CK-2) Total Protein 6.7 Albumin 2.8 L Lipase 280 Tumor Marker AFP 19.1 H Urine Color Urine Clarity Urine pH Ur Specific [place] Urine Protein Urine Glucose (UA) Urine Ketones Urine Occult Blood Urine Nitrate Urine Bilirubin Urine Ictotest Urine Urobilinogen Ur Leukocyte Esterase Urine RBC Urine WBC Ur Squamous Epith Cells Hyaline Casts Micro UA Comment Ur Microscopic Review Urine Culture Comments Acetaminophen Hepatitis A IgM Ab Hep Bs Antigen Hep B Core IgM Ab Hep C IgG Ab - Imaging Impressions Abdomen/Pelvis CT 06/20/18 17:01 CONCLUSION: 1. Splenomegaly 2. Status post cholecystectomy. 3. No evidence of biliary obstructive disease. 4. Otherwise unremarkable exam. <Ayo Ham - Last Filed: 06/21/18 14:46> Assessment and Plan - Plan - Acute hepatitis B/elevated LFTs, lipase- labs revealed acute hepatitis B. Endorses 2 weeks history of abdominal bloating, and gaviria colored stools. On admission, marked elevation in LFTs , AST 994, ALT 2031, ALP 138, bili 6.1. lipase 691. Abdominal CT scan was negative other than splenomegaly. Denies previous hx of liver dz. Remote history of cocaine use, but no history of IV drug abuse.He denies any alcohol. Denies taking any Tylenol. He denies any abdominal pain, weight loss, nausea , vomiting. He has prior history of cholecystectomy. He denies any recent risky behavior. His fiance in the room, states they have been together for over a yr - past medical history of depression, insomnia and ADD,Per attending Plan: - [facility] - Hep-B DNA - Monitor LFTs - Will order immunology - Discussed route of transmission and precautions and course of dz - Avoid hepatotoxic meds - Supportive care - pt seen and examined by dr. Ham and myself and this note is written on his behalf. <Stefany Brown - Last Filed: 06/21/18 09:04> - Plan Seen and examined with BRIM CURLER, unclear reason for pancreatitis , denies any risk factors for Hep B. Repeat labs. Hepatitis navarro in progress. Thank you <Ayo Ham - Last Filed: 06/21/18 14:46>
[2018-06-21 11:39] LABS: Alpha Fetoprotein Tumor Marker 19.1 ng/mL (0.5-8.0)
--- NOTE | 2018-06-21 11:45 | P.PNIM ---
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 Unclear how he could have contracted Hep B. Denies any IV drug abuse, new or different sexual partners Physical Exam Vital signs: Vital Signs 06/20/18 16:30 06/20/18 17:14 06/20/18 18:00 Temperature 97.4 F L Pulse Rate 78 73 70 Respiratory Rate 20 18 18 Blood Pressure 160/80 H 172/94 H 181/93 H Pulse Oximetry 95 97 96 06/20/18 20:41 06/20/18 22:46 06/21/18 00:00 Temperature 97.1 F L Pulse Rate 84 65 67 Respiratory Rate 17 18 Blood Pressure 170/107 H 164/99 H Pulse Oximetry 98 97 06/21/18 04:00 06/21/18 08:00 Temperature 97.1 F L Pulse Rate 72 67 Respiratory Rate 18 Blood Pressure 138/76 Pulse Oximetry 94 L Intake & Output 06/20/18 06/21/18 06/21/18 18:59 06:59 18:59 Intake Total 1000 / 1000 Balance 1000 / 1000 Weight 127.006 kg 137.1 kg Intake: IV 1000 / 1000 NS Inj 1,000 ML @ Wide Open IV. 1000 / 1000 SIG BOLUS ONE Rx#:[id number] Other: # Voids 1 Narrative: GENERAL: NAD, AAOx3 SKIN: Jaundice. NECK: Supple, trachea midline. No JVD or lymphadenopathy. CARDIO: Regular RESP: Breath sounds equal bilaterally. No accessory muscle use. ABD: +BS, soft, non-tender, nondistended. Results - Labs CBC & Chem 7: 06/21/18 03:42 06/21/18 03:42 Laboratory Results - last 24 hr 06/20/18 06/20/18 06/20/18 17:05 17:08 17:08 WBC 4.9 RBC 4.34 L Hgb 13.6 Hct 40.4 MCV 93.1 MCH 31.4 MCHC 33.7 RDW 18.0 H Plt Count 140 L MPV 10.4 Prelim Diff (Auto) Slide review pending Neut % (Auto) Lymph % (Auto) [place] % (Auto) Eos % (Auto) Baso % (Auto) Neut # (Auto) Lymph # (Auto) [place] # (Auto) Eos # (Auto) Baso # (Auto) WBC Differential Manual diff final Seg Neuts % (Manual) 52 Band Neuts % (Manual) 1 Lymphocytes % (Manual) 31 Monocytes % (Manual) 7 Eosinophils % (Manual) 8 H Basophils % (Manual) 1 Abs Neuts (Manual) 2.6 Differential Comment . Platelet Estimate Low L Platelet Morphology Normal RBC Morphology Normal PT 12.4 H INR 1.2 APTT 31.2 H Sodium Potassium Chloride Carbon Dioxide Anion Gap BUN Creatinine Estimated GFR Random Glucose Calcium Total Bilirubin Direct Bilirubin Indirect Bilirubin AST ALT Alkaline Phosphatase Ammonia 28 Total Creatine Kinase CK-MB (CK-2) Total Protein Albumin Lipase Urine Color Urine Clarity Urine pH Ur Specific [place] Urine Protein Urine Glucose (UA) Urine Ketones Urine Occult Blood Urine Nitrate Urine Bilirubin Urine Ictotest Urine Urobilinogen Ur Leukocyte Esterase Urine RBC Urine WBC Ur Squamous Epith Cells Hyaline Casts Micro UA Comment Ur Microscopic Review Urine Culture Comments Acetaminophen Hepatitis A IgM Ab Hep Bs Antigen Hep B Core IgM Ab Hep C IgG Ab 06/20/18 06/20/18 06/20/18 17:08 17:08 17:08 WBC RBC Hgb Hct MCV MCH MCHC RDW Plt Count MPV Prelim Diff (Auto) Neut % (Auto) Lymph % (Auto) [place] % (Auto) Eos % (Auto) Baso % (Auto) Neut # (Auto) Lymph # (Auto) [place] # (Auto) Eos # (Auto) Baso # (Auto) WBC Differential Seg Neuts % (Manual) Band Neuts % (Manual) Lymphocytes % (Manual) Monocytes % (Manual) Eosinophils % (Manual) Basophils % (Manual) Abs Neuts (Manual) Differential Comment Platelet Estimate Platelet Morphology RBC Morphology PT INR APTT Sodium 141 Potassium 3.9 Chloride 105 Carbon Dioxide 30.5 Anion Gap 6 BUN 12 Creatinine 0.84 Estimated GFR Random Glucose 108 H Calcium 8.1 L Total Bilirubin 6.1 H Direct Bilirubin Indirect Bilirubin AST 994 H ALT 2031 H Alkaline Phosphatase 138 H Ammonia Total Creatine Kinase 208 Cancelled CK-MB (CK-2) 4.5 H Total Protein 7.0 Albumin 3.0 L Lipase 691 H Urine Color Urine Clarity Urine pH Ur Specific [place] Urine Protein Urine Glucose (UA) Urine Ketones Urine Occult Blood Urine Nitrate Urine Bilirubin Urine Ictotest Urine Urobilinogen Ur Leukocyte Esterase Urine RBC Urine WBC Ur Squamous Epith Cells Hyaline Casts Micro UA Comment Ur Microscopic Review Urine Culture Comments Acetaminophen Less than 2.0 L Hepatitis A IgM Ab Hep Bs Antigen Hep B Core IgM Ab Hep C IgG Ab 06/20/18 06/21/18 06/21/18 21:32 03:42 03:42 WBC 5.0 RBC 4.21 L Hgb 13.2 Hct 39.4 MCV 93.6 MCH 31.4 MCHC 33.5 RDW 17.4 H Plt Count 123 L MPV 10.7 Prelim Diff (Auto) Neut % (Auto) 46.4 Lymph % (Auto) 38.0 [place] % (Auto) 10.8 H Eos % (Auto) 4.3 H Baso % (Auto) 0.5 Neut # (Auto) 2.3 Lymph # (Auto) 1.9 [place] # (Auto) 0.5 Eos # (Auto) 0.2 Baso # (Auto) 0.0 WBC Differential . Seg Neuts % (Manual) Band Neuts % (Manual) Lymphocytes % (Manual) Monocytes % (Manual) Eosinophils % (Manual) Basophils % (Manual) Abs Neuts (Manual) Differential Comment Auto diff final Platelet Estimate Platelet Morphology RBC Morphology PT INR APTT Sodium Potassium Chloride Carbon Dioxide Anion Gap BUN Creatinine Estimated GFR Random Glucose Calcium Total Bilirubin Direct Bilirubin Indirect Bilirubin AST ALT Alkaline Phosphatase Ammonia Total Creatine Kinase CK-MB (CK-2) Total Protein Albumin Lipase Urine Color [place] Urine Clarity Clear Urine pH 5.0 Ur Specific [place] 1.019 Urine Protein Negative Urine Glucose (UA) Negative Urine Ketones Negative Urine Occult Blood Negative Urine Nitrate Negative Urine Bilirubin Small H Urine Ictotest Positive H Urine Urobilinogen 4 or greater Ur Leukocyte Esterase Negative Urine RBC Less than 1 Urine WBC 2 Ur Squamous Epith Cells <1 Hyaline Casts 1 Micro UA Comment Culture not ind Ur Microscopic Review Not Reportable Urine Culture Comments Culture not ind Acetaminophen Hepatitis A IgM Ab Nonreactive Hep Bs Antigen Reactive H Hep B Core IgM Ab Reactive H Hep C IgG Ab Nonreactive 06/21/18 06/21/18 03:42 03:42 WBC RBC Hgb Hct MCV MCH MCHC RDW Plt Count MPV Prelim Diff (Auto) Neut % (Auto) Lymph % (Auto) [place] % (Auto) Eos % (Auto) Baso % (Auto) Neut # (Auto) Lymph # (Auto) [place] # (Auto) Eos # (Auto) Baso # (Auto) WBC Differential Seg Neuts % (Manual) Band Neuts % (Manual) Lymphocytes % (Manual) Monocytes % (Manual) Eosinophils % (Manual) Basophils % (Manual) Abs Neuts (Manual) Differential Comment Platelet Estimate Platelet Morphology RBC Morphology PT 12.0 H INR 1.2 APTT Sodium 141 Potassium 4.1 Chloride 105 Carbon Dioxide 28.4 Anion Gap 8 BUN 13 Creatinine 0.71 Estimated GFR Greater than 89 Random Glucose 51 L Calcium 8.1 L Total Bilirubin 6.6 H Direct Bilirubin 3.9 H Indirect Bilirubin 2.7 H AST 849 H ALT 1881 H Alkaline Phosphatase 128 H Ammonia Total Creatine Kinase CK-MB (CK-2) Total Protein 6.7 Albumin 2.8 L Lipase 280 Urine Color Urine Clarity Urine pH Ur Specific [place] Urine Protein Urine Glucose (UA) Urine Ketones Urine Occult Blood Urine Nitrate Urine Bilirubin Urine Ictotest Urine Urobilinogen Ur Leukocyte Esterase Urine RBC Urine WBC Ur Squamous Epith Cells Hyaline Casts Micro UA Comment Ur Microscopic Review Urine Culture Comments Acetaminophen Hepatitis A IgM Ab Hep Bs Antigen Hep B Core IgM Ab Hep C IgG Ab - Imaging Impressions Abdomen/Pelvis CT 06/20/18 17:01 CONCLUSION: 1. Splenomegaly 2. Status post cholecystectomy. 3. No evidence of biliary obstructive disease. 4. Otherwise unremarkable exam. Assessment and Plan - Assessment (1) Acute hepatitis B Code(s): B16.9 - Acute hepatitis B without delta-agent and without hepatic coma Status: Acute Plan: Acute Hepatitis B Infection - Pt is a 53 y/o male with depression, insomnia and ADD, who presents to the ED on 06/20/18 with complaints of yellow eyes and dark colored urine. He also noted 2 week history of abdominal bloating, flatulence and gaviria colored stools. He has prior history of cholecystectomy. Remote history of cocaine use, but no history of IV drug abuse. - His LFTs in the ER showed Tbili 6.1, AST 994, ALT 2031, AlkPhos 138, and Lipase was 691 - Repeat LFTs on 06/21 noted TBili 6.6, DBili 3.9, IBili 2.7, AST 849, ALT 1881, AlkPhos 128 - CT Abd/pelvis (06/20/18) --> Splenomegaly, s/p cholecystectomy. - His viral hepatitis panel was positive for Hepatitis Bs Ang positive and Hep B Core IgM Ab positive. Hepatitis C Ab is negative. Hep Be Ant/Ab are pending and Hep B DNA Qnt is pending. - Tylenol level was negative. - GI is following. - GI has ordered ALBERT, ASMA, AMA, AFP, Ceruloplasmin, Iron studies - Monitor liver function tests. - Supportive care - SCDs for DVT prophylaxis. (2) Elevated lipase Code(s): R74.8 - Abnormal levels of other serum enzymes Status: Acute (3) Thrombocytopenia Code(s): D69.6 - Thrombocytopenia, unspecified Status: Acute - Attending Attestation Patient examined. Assessment and plan formulated with Alexandra Nowak PA-C. I agree with the above. await input from W[employer]er [employer].
[2018-06-21 11:46] LABS: % Iron Saturation 63.8 % (20-50)
[2018-06-22 07:15] LABS: Baso # (Auto) 0.1 th/mm3 (0.0-0.2); Baso % (Auto) 1.4 % (0.0-2.0); Eos # (Auto) 0.1 th/mm3 (0.0-0.4); Eos % (Auto) 2.2 % (0.0-4.0); Hematocrit 43.6 % (39.0-51.0); Hemoglobin 14.6 gm/dL (13.0-17.0); Lymph # (Auto) 1.7 th/mm3 (1.0-4.8); Lymph % (Auto) 28.1 % (9.0-44.0); Mean Corpuscular HGB Conc 33.6 % (32.0-36.0); Mean Corpuscular Hemoglobin 31.6 pg (27.0-34.0); Mean Corpuscular Volume 93.9 fL (80.0-100.0); Mean Platelet Volume 10.4 fL (7.0-11.0); Mono # (Auto) 0.4 th/mm3 (0.0-0.9); Neut # (Auto) 3.8 th/mm3 (1.8-7.7); Neut % (Auto) 62.3 % (16.0-70.0); Platelet Count 150 th/mm3 (150-450); Red Blood Count 4.64 mil/mm3 (4.50-5.90); White Blood Count 6.1 th/mm3 (4.0-11.0)
[2018-06-22 07:36] LABS: Albumin 2.8 g/dL (3.4-5.0); Anion Gap 8 meq/L (5-15); Aspartate Aminotransferase 550 U/L (15-37); Calcium 8.4 mg/dL (8.5-10.1); Carbon Dioxide 25.5 meq/L (21.0-32.0); Chloride 108 meq/L (98-107); Glomerular Filtration Rate Greater Than 89 mL/min (>89); Glucose,Random 84 mg/dL (74-106); Sodium 141 meq/L (136-145)
[2018-06-22 07:40] LABS: Alanine Aminotransferase 1502 U/L (12-78); Alkaline Phosphatase 130 U/L (45-117); Blood Urea Nitrogen 9 mg/dL (7-18); Total Protein 7.3 g/dL (6.4-8.2)
[2018-06-22 07:41] LABS: Potassium 4.9 meq/L (3.5-5.1)
--- NOTE | 2018-06-22 11:12 | P.PNGI ---
Subjective Interval history: Pt laying in bed resting. 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 Denies abdominal pain, nausea or vomiting. Tolerating regular diet well. reports having soft BM' s daily. Denies any obvious bleeding. Discussed Hepatitis B infection. Pt denies any known hx of at risk behavior leading to infection. Denies IVDA, multiple sexual partners or unprotected sexual intercourse. <Malgorzata Sanz - Last Filed: 06/22/18 12:25> Physical Exam Vital signs: Vital Signs 06/21/18 12:00 06/21/18 16:00 06/21/18 20:00 Temperature 97.9 F 98.1 F 98.9 F Pulse Rate 70 75 76 Respiratory Rate 19 18 18 Blood Pressure 170/97 H 164/93 H 122/59 L Pulse Oximetry 97 97 94 L 06/22/18 00:00 06/22/18 04:00 06/22/18 08:00 Temperature 97.4 F L 97.5 F L 97.8 F Pulse Rate 92 H 59 L 77 Respiratory Rate 20 18 16 Blood Pressure 145/98 H 164/99 H 176/98 H Pulse Oximetry 96 98 99 Intake & Output 06/21/18 06/22/18 06/22/18 18:59 06:59 18:59 Intake Total 420 / 420 Balance 420 / 420 Weight 137.3 kg Intake: Oral 420 / 420 Other: # Voids 4 # Bowel Movements 0 - Constitutional no acute distress, cooperative - Routine HEENT Exam Head: Present: normocephalic Eye: Present: conjunctival icterus - Routine Respiratory Exam Present: CTA bilaterally - Routine Cardiovascular Exam Present: S1, S2 - Routine Abdominal Exam Present: soft, normoactive bowel sounds. Absent: distended, guarding - Routine Extremities Exam Present: pulses intact - Routine Skin Exam Present: dry, warm - Routine Neurological Exam Present: alert, oriented X3 - Routine Psychiatric Exam Present: normal affect <Malgorzata Sanz - Last Filed: 06/22/18 12:25> Vital signs: Vital Signs 06/21/18 16:00 06/21/18 20:00 06/22/18 00:00 Temperature 98.1 F 98.9 F 97.4 F L Pulse Rate 75 76 92 H Respiratory Rate 18 18 20 Blood Pressure 164/93 H 122/59 L 145/98 H Pulse Oximetry 97 94 L 96 06/22/18 04:00 06/22/18 08:00 06/22/18 12:00 Temperature 97.5 F L 97.8 F 97.9 F Pulse Rate 59 L 77 76 Respiratory Rate 18 16 16 Blood Pressure 164/99 H 176/98 H 172/90 H Pulse Oximetry 98 99 99 Intake & Output 06/21/18 06/22/18 06/22/18 18:59 06:59 18:59 Intake Total 420 / 420 380 / 380 Output Total 800 / 800 Balance 420 / 420 -420 / -420 Weight 137.3 kg Intake: Oral 420 / 420 380 / 380 Output: Urine 800 / 800 Other: # Voids 4 # Bowel Movements 0 1 <Ayo Ham - Last Filed: 06/22/18 15:49> Results - Labs CBC & Chem 7: 06/22/18 06:46 06/22/18 06:46 Laboratory Results - last 24 hr 06/21/18 06/21/18 06/21/18 10:31 19:39 19:39 WBC RBC Hgb Hct MCV MCH MCHC RDW Plt Count MPV Neut % (Auto) Lymph % (Auto) [place] % (Auto) Eos % (Auto) Baso % (Auto) Neut # (Auto) Lymph # (Auto) [place] # (Auto) Eos # (Auto) Baso # (Auto) WBC Differential Differential Comment Sodium Potassium Chloride Carbon Dioxide Anion Gap BUN Creatinine Estimated GFR Random Glucose Calcium Iron 202 H TIBC 316 % Saturation 63.8 H Ferritin 1417 H Total Bilirubin AST ALT Alkaline Phosphatase Total Protein Albumin Tumor Marker AFP 19.1 H RPR Nonreactive HIV 1&2 Ab/P24 Ag 4thGn Nonreactive 06/22/18 06/22/18 06:46 06:46 WBC 6.1 RBC 4.64 Hgb 14.6 Hct 43.6 MCV 93.9 MCH 31.6 MCHC 33.6 RDW 18.0 H Plt Count 150 MPV 10.4 Neut % (Auto) 62.3 Lymph % (Auto) 28.1 [place] % (Auto) 6.0 Eos % (Auto) 2.2 Baso % (Auto) 1.4 Neut # (Auto) 3.8 Lymph # (Auto) 1.7 [place] # (Auto) 0.4 Eos # (Auto) 0.1 Baso # (Auto) 0.1 WBC Differential . Differential Comment Auto diff final Sodium 141 Potassium 4.9 D Chloride 108 H Carbon Dioxide 25.5 Anion Gap 8 BUN 9 Creatinine 0.71 Estimated GFR Greater than 89 Random Glucose 84 Calcium 8.4 L Iron TIBC % Saturation Ferritin Total Bilirubin 4.8 H AST 550 H ALT 1502 H Alkaline Phosphatase 130 H Total Protein 7.3 D Albumin 2.8 L Tumor Marker AFP RPR HIV 1&2 Ab/P24 Ag 4thGn <Malgorzata Sanz - Last Filed: 06/22/18 12:25> - Labs CBC & Chem 7: 06/22/18 06:46 06/22/18 06:46 Laboratory Results - last 24 hr 06/21/18 06/21/18 06/22/18 19:39 19:39 06:46 WBC 6.1 RBC 4.64 Hgb 14.6 Hct 43.6 MCV 93.9 MCH 31.6 MCHC 33.6 RDW 18.0 H Plt Count 150 MPV 10.4 Neut % (Auto) 62.3 Lymph % (Auto) 28.1 [place] % (Auto) 6.0 Eos % (Auto) 2.2 Baso % (Auto) 1.4 Neut # (Auto) 3.8 Lymph # (Auto) 1.7 [place] # (Auto) 0.4 Eos # (Auto) 0.1 Baso # (Auto) 0.1 WBC Differential . Differential Comment Auto diff final Sodium Potassium Chloride Carbon Dioxide Anion Gap BUN Creatinine Estimated GFR Random Glucose Calcium Total Bilirubin AST ALT Alkaline Phosphatase Total Protein Albumin RPR Nonreactive HIV 1&2 Ab/P24 Ag 4thGn Nonreactive 06/22/18 06:46 WBC RBC Hgb Hct MCV MCH MCHC RDW Plt Count MPV Neut % (Auto) Lymph % (Auto) [place] % (Auto) Eos % (Auto) Baso % (Auto) Neut # (Auto) Lymph # (Auto) [place] # (Auto) Eos # (Auto) Baso # (Auto) WBC Differential Differential Comment Sodium 141 Potassium 4.9 D Chloride 108 H Carbon Dioxide 25.5 Anion Gap 8 BUN 9 Creatinine 0.71 Estimated GFR Greater than 89 Random Glucose 84 Calcium 8.4 L Total Bilirubin 4.8 H AST 550 H ALT 1502 H Alkaline Phosphatase 130 H Total Protein 7.3 D Albumin 2.8 L RPR HIV 1&2 Ab/P24 Ag 4thGn <Ayo Ham Last Filed: 06/22/18 15:49> Assessment and Plan - Plan Plan - Acute hepatitis B/elevated LFTs, lipase- labs revealed acute hepatitis B. Endorses 2 weeks history of abdominal bloating, and gaviria colored stools. On admission, marked elevation in LFTs , AST 994, ALT 2031, ALP 138, bili 6.1. lipase 691. Abdominal CT scan was negative other than splenomegaly. Denies previous hx of liver dz. Remote history of cocaine use, but no history of IV drug abuse.He denies any alcohol. Denies taking any Tylenol. He denies any abdominal pain, weight loss, nausea , vomiting. He has prior history of cholecystectomy. He denies any recent risky behavior. His fiance in the room, states they have been together for over a yr - past medical history of depression, insomnia and ADD,Per attending 06/22/18- Pt resting comfortably, denies abdominal pain, nausea or vomiting. Appetite good per pt. Denies diarrhea or constipation and states stools are soft and formed. 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 Discussed Hepatitis B infection, pt denies any known risk factors for sundar infection. Denies IVDA, multiple sexual partners or engaging in unprotected sex. Current labs reviewed. liver enzymes trending down since admission. 06/21/18 Total Bili 6.6 , AST 849, ALT 1881, ALK PHOS 128. 8 Lipase normalized 280. 8 Tumor marker mild elevated AFP 19.1. Hep B DNA and immunology pending. Elevated liver function and AFP tests may be related to Hepatitis B infection, acute/ chronic ? May consider liver bx. pending lab results. CT scan negative except for splenomegaly. Plan: - Diet, regular - Hep-B DNA pending - Continue to monitor LFTs - Consider OP colonoscopy screening when feeling better/ stable - Immunology pending - Discussed Hepatitis infection, precautions and progression of illness - Avoid hepatotoxic agents - Supportive care - further recommendations to follow. -Patient seen per myself and Dr. Ham, note was written on his behalf <Malgorzata Sanz - Last Filed: 06/22/18 12:25> - Plan Seen and examined with SUG[facility] PRESSER, liver navarro in progress. GI fu upon dc. <Jitendra,Rollins - Last Filed: 06/22/18 15:49>
--- NOTE | 2018-06-22 12:01 | P.PNIM ---
Subjective Interval history: Pt is eating and drinking well. He denies any abdominal pain, nausea/vomiting. Physical Exam Vital signs: Vital Signs 06/21/18 12:00 06/21/18 16:00 06/21/18 20:00 Temperature 97.9 F 98.1 F 98.9 F Pulse Rate 70 75 76 Respiratory Rate 19 18 18 Blood Pressure 170/97 H 164/93 H 122/59 L Pulse Oximetry 97 97 94 L 06/22/18 00:00 06/22/18 04:00 06/22/18 08:00 Temperature 97.4 F L 97.5 F L 97.8 F Pulse Rate 92 H 59 L 77 Respiratory Rate 20 18 16 Blood Pressure 145/98 H 164/99 H 176/98 H Pulse Oximetry 96 98 99 Intake & Output 06/21/18 06/22/18 06/22/18 18:59 06:59 18:59 Intake Total 420 / 420 Balance 420 / 420 Weight 137.3 kg Intake: Oral 420 / 420 Other: # Voids 4 # Bowel Movements 0 Narrative: GENERAL: NAD, AAOx3 SKIN: Jaundice. NECK: Supple, trachea midline. No JVD or lymphadenopathy. CARDIO: Regular RESP: Breath sounds equal bilaterally. No accessory muscle use. ABD: +BS, soft, non-tender, nondistended. Results - Labs CBC & Chem 7: 06/22/18 06:46 06/22/18 06:46 Laboratory Results - last 24 hr 06/21/18 06/21/18 06/22/18 19:39 19:39 06:46 WBC 6.1 RBC 4.64 Hgb 14.6 Hct 43.6 MCV 93.9 MCH 31.6 MCHC 33.6 RDW 18.0 H Plt Count 150 MPV 10.4 Neut % (Auto) 62.3 Lymph % (Auto) 28.1 [place] % (Auto) 6.0 Eos % (Auto) 2.2 Baso % (Auto) 1.4 Neut # (Auto) 3.8 Lymph # (Auto) 1.7 [place] # (Auto) 0.4 Eos # (Auto) 0.1 Baso # (Auto) 0.1 WBC Differential . Differential Comment Auto diff final Sodium Potassium Chloride Carbon Dioxide Anion Gap BUN Creatinine Estimated GFR Random Glucose Calcium Total Bilirubin AST ALT Alkaline Phosphatase Total Protein Albumin RPR Nonreactive HIV 1&2 Ab/P24 Ag 4thGn Nonreactive 06/22/18 06:46 WBC RBC Hgb Hct MCV MCH MCHC RDW Plt Count MPV Neut % (Auto) Lymph % (Auto) [place] % (Auto) Eos % (Auto) Baso % (Auto) Neut # (Auto) Lymph # (Auto) [place] # (Auto) Eos # (Auto) Baso # (Auto) WBC Differential Differential Comment Sodium 141 Potassium 4.9 D Chloride 108 H Carbon Dioxide 25.5 Anion Gap 8 BUN 9 Creatinine 0.71 Estimated GFR Greater than 89 Random Glucose 84 Calcium 8.4 L Total Bilirubin 4.8 H AST 550 H ALT 1502 H Alkaline Phosphatase 130 H Total Protein 7.3 D Albumin 2.8 L RPR HIV 1&2 Ab/P24 Ag 4thGn - Imaging Abdomen/Pelvis CT 06/20/18 17:01 CONCLUSION: 1. Splenomegaly 2. Status post cholecystectomy. 3. No evidence of biliary obstructive disease. 4. Otherwise unremarkable exam. Assessment and Plan - Assessment (1) Acute hepatitis B Code(s): B16.9 - Acute hepatitis B without delta-agent and without hepatic coma Status: Acute Plan: Acute Hepatitis B Infection - Pt is a 53 y/o male with depression, insomnia and ADD, who presents to the ED on 06/20/18 with complaints of yellow eyes and dark colored urine. He also noted 2 week history of abdominal bloating, flatulence and gaviria colored stools. He has prior history of cholecystectomy. Remote history of cocaine use, but no history of IV drug abuse. - His LFTs in the ER showed Tbili 6.1, AST 994, ALT 2031, AlkPhos 138, and Lipase was 691 - Repeat LFTs on 06/21 noted TBili 6.6, DBili 3.9, IBili 2.7, AST 849, ALT 1881, AlkPhos 128 - CT Abd/pelvis (06/20/18) --> Splenomegaly, s/p cholecystectomy. - His viral hepatitis panel was positive for Hepatitis Bs Ang positive and Hep B Core IgM Ab positive. Hepatitis C Ab is negative. Hep Be Ant/Ab are pending and Hep B DNA Qnt is pending. - RPR and HIV screenings are negative. - LFTs are slowly improving with Tbili 4.8, AST 550, ALT 1502, AlkPhos 130. - Tylenol level was negative. - GI is following. - GI has ordered ALBERT (pending), ASMA (pending), AMA (pending), AFP elevated 19.1 , Ceruloplasmin (pending), [id number] (Pending), Iron studies (Serum Fe 202, TIBC 316, %Sat 63.8, Ferritin 1417) - Discussed the case with Dr. Ham and the pt is cleared from a GI standpoint for discharge and is to followup outpt with repeat blood work. - Pt will also need to followup with his [facility] assigned PCP, Dr. Neal, in 1 week. He will need to call for an appt. - Pt was given information regarding Hepatitis B transmission and exposure and recommended that his fiance get tested as well. (2) Elevated lipase Code(s): R74.8 - Abnormal levels of other serum enzymes Status: Acute (3) Thrombocytopenia Code(s): D69.6 - Thrombocytopenia, unspecified Status: Acute - Attending Attestation Patient examined. Assessment and plan formulated with Alexandra Nowak PA-C. I agree with the above.
[2018-06-22 23:52] LABS: Hepatitis Be Antigen NONREACTIVE
[2018-06-24 15:52] LABS: Hepatitis B DNA (IU/mL) 26500 IU/mL (0-19); Hepatitis B DNA (Log IU/mL) 4.42 (0-1.30)
[2018-06-24 17:51] LABS: Ceruloplasmin 29 mg/dL (18-36)
[2018-06-24 19:54] LABS: Hepatitis Be Ab REACTIVE
[2018-06-25 03:51] LABS: DS DNA Ab (Crithidia) POSITIVE (NEGATIVE)
== END 2018-06-22 14:21 | disposition home or self-care (01) ==
LOC: NEDA 16:25 → NEPC 16:25 → N04 22:00
PROVIDERS: ADMIT Hospitalist; ATTEND Hospitalist